=== PATIENT | male | born 1955 | race Caucasian/White ===

== ENCOUNTER 2017-02-27 09:12 | Emergency (ER) | payer BC, OTHER ==
[~2017-02-27] VITALS: Ht 188 cm; Wt 108.0 kg
[~2017-02-27 09:12] MED LIST: AMOX400S9 PO; AMOX875T20 PO; ASPI81TA82 PO; CHLO.12%30 SSP; CIPRHC10A RIGHT EAR; CLON.1 PO; CLON.1T TOP; HYDR-3580 PO; OMPR20CCR PO; SIMV20 PO; TOPR25TA2 PO
[2017-02-27 09:18] VITALS: BP 171/86; PULSE 68; RESP 18; TEMP 98.4; O2SAT 96
[2017-02-27] MEDS ORDERED: ASPI81CH CHEW ×2 (09:34)
[2017-02-27] MEDS ORDERED: SIMV20TA PO (09:34)
[2017-02-27] MEDS ORDERED: ASPI-110 PO (09:34)
[2017-02-27] MEDS ORDERED: PRIL20TA2 PO (09:34)
[2017-02-27] MEDS ORDERED: METO50TA11 PO (09:34)
[2017-02-27] MEDS ORDERED: HYDR-3516 PO (09:41)
[2017-02-27] MEDS ORDERED: KETOROLAC TROMETHAMINE 60 MG/2 ML (IM) VIAL IM ONE (10:00)
[2017-02-27] MEDS ORDERED: ORPHENADRINE INJ 60 MG/2 ML AMP IM ONE (10:00)
--- NOTE | 2017-02-27 10:29 | PD ---
HPI Chief Complaint: Musculoskeletal Complaint Time Seen by Provider: 09:37 Travel History International Travel<30 days: No Contact w/Intl Traveler<30days: No Traveled to known affect area: No History of Present Illness HPI This is a 62-year-old male who presents to the emergency department with 1 week of right low back pain, constant, moderate severity, worse in his hip, worse with walking and worse at the end of the day with no associated numbness or weakness. He has no radiating pain. He's had pain like this in the past and is improved with chiropractic intervention. Patient was prescribed Lortab by his primary care physician but that's not helping. He denies any injury. He denies any history of IV drug use. PFSH Past Medical History Hx Anticoagulant Therapy: Yes (ASA) Cancer: No Cardiovascular Problems: Yes (AAA) High Cholesterol: Yes Diminished Hearing: No Endocrine: No GERD: Yes Genitourinary: No Hiatal Hernia: Yes Hypertension: Yes Immune Disorder: No Inguinal Hernia: Yes Musculoskeletal: Yes (CHRONIC BACK PAIN) Neurologic: No Psychiatric: No Reproductive: No Respiratory: No Influenza Vaccination: Yes Past Surgical History Abdominal Aneurysm Repair: Yes Abdominal Surgery: Yes (DBL HERNIA) Coronary Artery Bypass Graft: Yes Social History Alcohol Use: Yes (ONE BEER DAILY) Tobacco Use: No Substance Use: No Allergies-Medications (Allergen,Severity, Reaction): Coded Allergies: No Known Allergies (Verified , 02/27/17) NKA Uncoded Allergies: NKA (Allergy, Unknown, 01/15/03) NKDA (Allergy, Unknown, 01/15/03) Reported Meds & Prescriptions Reported Meds & Active Scripts Active Reported Hydrocodone-Acetaminophen 5-325 mg Tab 1 Tab PO Q6H PRN Prilosec (Omeprazole Magnesium) 20 Mg Tab 1 Tab PO DAILY Simvastatin 20 Mg Tab 20 Mg PO DAILY Metoprolol Succinate ER 24 HR (Metoprolol Succinate) 50 Mg Tab 50 Mg PO DAILY Aspirin 81 Mg Chew 81 Mg CHEW EVERY OTHER DAY Review of Systems Except as stated in HPI: all other systems reviewed are Neg Physical Exam Narrative GENERAL:Well appearing, no acute distress SKIN: Focused skin assessment warm and dry. HEAD: Atraumatic. Normocephalic. EYES: Pupils equal and round. No injection or drainage. ENT: Moist mucous membranes NECK: Trachea midline. CARDIOVASCULAR: Regular rate and rhythm. No murmur appreciated. 2+ right DP pulse with normal capillary refill. RESPIRATORY: Clear to auscultation. Breath sounds equal bilaterally. GASTROINTESTINAL: Abdomen soft, non-tender, nondistended. MUSCULOSKELETAL: Tender to palpation over the right sacroiliac joint with no pain with movement at the hip and no focal vertebral tenderness in the lumbar spine. NEUROLOGICAL: Awake and alert. No obvious cranial nerve deficits. Moving all extremities. PSYCHIATRIC: Appropriate mood and affect; insight and judgment normal. Data Data Last Documented VS Vital Signs Date Time Temp Pulse Resp B/P (MAP) Pulse Ox O2 Delivery O2 Flow Rate FiO2 02/27/17 09:25 16 02/27/17 09:18 98.4 68 171/86 (114) 96 Orders Orders Hip, Uni(Ap&Lat) W Ap Pelvis (02/27/17 ) Spine, Lumbar - Ltd (Ap & Lat) (02/27/17 ) Ketorolac Inj (Toradol Inj) (02/27/17 10:00) Orphenadrine Inj (Norflex Inj) (02/27/17 10:00) MDM Medical Decision Making Medical Screen Exam Complete: Yes Emergency Medical Condition: Yes Interpretation(s) Afebrile, no tachycardia, hypertensive Last 24 hours Impressions Hip and Pelvis X-Ray 02/27/17 0000 Signed Impressions: Service Date/Time: Monday, February 27, 2017 10:14 - CONCLUSION: No acute disease. Giuseppe Porter MD Differential Diagnosis Osteoarthritis, sacroiliitis, compression fracture, herniated disc Narrative Course This is a 62-year-old male who presents to the emergency department with right sided hip pain and low back pain. He has a benign neurovascular exam. This pain is pain is had in the past. X-rays were obtained which were reassuring. He has no red flags for cauda equina syndrome. I suspect his pain is more localized to the hip than the low back. He was given anti-inflammatories and muscle relaxers and he will be referred to an orthopedic physician as an outpatient. I did discuss the adverse risk profile of meloxicam and we agreed the risks outweighed the benefits. Diagnosis Primary Impression: Hip joint pain Qualified Codes: M25.551 - Pain in right hip Patient Instructions: General Instructions Additional Instructions: If you develop weakness of your legs, difficulty walking, numbness of your legs or your genital or rectal area, loss of your bowel or bladder, or difficulty urinating return to the emergency department immediately. Follow up with an orthopedic physician if your symptoms do not improve. Med/Other Pt SpecificInfo: Prescription(s) given Scripts Cyclobenzaprine (Flexeril) 10 Mg Tab 10 MG PO TID for Muscle Spasm, #15 TAB 0 Refills Prov: Celina Brown MD 02/27/17 Meloxicam (Meloxicam) 15 Mg Tab 15 MG PO DAILY for Arthritis Pain, #14 TAB 0 Refills Prov: Celina Brown MD 02/27/17 Disposition: 01 DISCHARGE HOME Condition: Stable Celina Brown MD Feb 27, 2017 10:29
--- NOTE | 2017-02-27 10:49 | RADRPT ---
EXAM DATE/TIME: 02/27/2017 10:14 [facility] COMPARISON: No previous studies available for comparison. INDICATIONS : Low back pain, right hip area pain, no known injury MEDICAL HISTORY : None. SURGICAL HISTORY : CABG. spinal ENCOUNTER: Initial ACUITY: 1 week PAIN SCORE: 7/10 LOCATION: Right hip FINDINGS: Examination of the right hip was performed with AP Pelvis. The primary and secondary trabecular cristian suzanne of the femoral neck is intact. The hip joint is of normal width without significant sclerosis or bony hypertrophy. The acetabulum is grossly intact. CONCLUSION: No acute disease. Giuseppe Porter MD on February 27, 2017 at 10:47 Board Certified Radiologist. This report was verified electronically.
--- NOTE | 2017-02-27 10:51 | RADRPT ---
EXAM DATE/TIME: 02/27/2017 10:17 [facility] COMPARISON: No previous studies available for comparison. INDICATIONS : Low back and right hip area pain, no known injury MEDICAL HISTORY : None. SURGICAL HISTORY : CABG. spinal ENCOUNTER: Initial ACUITY: 1 week PAIN SCORE: 7/10 LOCATION: Bilateral lumbar FINDINGS: There are transitional changes at the lumbosacral region. There appears to be some lumbarization of S 1. There are rudimentary ribs seen at L1. The lumbar vertebral bodies are normally aligned. They are normal in height. There is mild disc space narrowing at the left L4-L5 level. Minimal spurs are seen. The sacroiliac joints appear intact. Vascular calcifications are seen. CONCLUSION: Mild degenerative change. Giuseppe Porter MD on February 27, 2017 at 10:48 Board Certified Radiologist. This report was verified electronically.
[2017-02-27] MEDS ORDERED: CYCL1TAB29 PO (10:58)
[2017-02-27] MEDS ORDERED: MELO-1 PO (10:58)
== END 2017-02-27 11:05 | disposition home or self-care (01) ==
LOC: PHED 09:12
DX: M25.551 Pain in right hip (principal); M54.5 Low back pain; G89.29 Other chronic pain; I10 Essential (primary) hypertension; K21.9 Gastro-esophageal reflux disease without esophagitis
CPT/HCPCS: 72100; 73502; 96372; 99284; J1885; J2360